=== PATIENT | male | born 1965 | race Caucasian/White ===

== ENCOUNTER 2020-04-18 10:30 | Inpatient (IN) | payer OTHER ==
[~2020-04-18] VITALS: Ht 172.7 cm; Wt 95.7 kg
[2020-04-18 10:35] VITALS: BP 146/89
[2020-04-18] MEDS ORDERED: BUPROPION HCL150 MG PO (10:43)
[2020-04-18] MEDS ORDERED: LIPITOR80 MG PO (10:43)
[2020-04-18] MEDS ORDERED: LOTENSIN40 MG PO (10:43)
[2020-04-18] MEDS ORDERED: LODINE400 M1 PO (10:44)
[2020-04-18] MEDS ORDERED: CLOBETASOL PROP15 GM TOP (10:44)
[2020-04-18] MEDS ORDERED: FLOVENT DISKU100 MCG INH (10:44)
[2020-04-18] MEDS ORDERED: DULOXETINE HCL30 MG PO (10:44)
[2020-04-18] MEDS ORDERED: ZETIA10 MG PO (10:44)
[2020-04-18] MEDS ORDERED: METFORMIN HCL500 M3 PO (10:45)
[2020-04-18] MEDS ORDERED: VIAGRA50 MG PO (10:45)
[2020-04-18] MEDS ORDERED: OMEPRAZOLE40 MG PO (10:45)
[2020-04-18] MEDS ORDERED: ZOLOFT 50 MG TA50 M1 PO (10:45)
[2020-04-18] MEDS ORDERED: VIAGRA100 MG PO (10:45)
[2020-04-18] MEDS ORDERED: VENTOLIN HFA 1818 GM INH (10:46)
[2020-04-18 10:52] LABS: ABSOLUTE BASOPHILS 0.3 thou/uL (0.0-0.2); ABSOLUTE EOSINOPHILS 0.1 thou/uL (0.0-0.7); ABSOLUTE LYMPHOCYTES 3.1 thou/uL (0.8-5.3); ABSOLUTE MONOCYTES 1.4 thou/uL (0.0-1.2); ABSOLUTE NEUTROPHILS 7.5 thou/uL (1.6-8.1); BASOPHILS 2.6 %; EOSINOPHILS 1.2 %; HEMATOCRIT 53.3 % (42.0-52.0); HEMOGLOBIN 18.4 gm/dL (14.0-18.0); LYMPHOCYTES 24.9 %; MCHC 34.5 g/dL (28.0-37.0); MONOCYTES 11.2 %; NUCLEATED RBCS 0 /100WBC; PLATELET COUNT* 384 thou/uL (150-400); POLYS 60.1 %; RBC 6.13 mil/uL (4.50-6.00); RDW-CV 13.4 % (10.5-14.5); WBC 12.5 thou/uL (4.0-11.0)
[2020-04-18 11:18] LABS: ALBUMIN 3.4 g/dL (3.4-5.0); CALCIUM 9.6 mg/dL (8.5-10.1); POTASSIUM 4.6 mmol/L (3.5-5.1); TOTAL BILIRUBIN 0.8 mg/dL (<0.1-1.0); TOTAL PROTEIN 7.4 g/dL (6.4-8.2)
[2020-04-18 11:44] LABS: CREATININE 0.9 mg/dL (0.6-1.3); SGOT 31.2 U/L (15-37)
[2020-04-18 11:45] LABS: SGPT 32.4 U/L (30-65)
[2020-04-18 11:47] LABS: GLUCOSE 573.6 mg/dL (70-99)
[2020-04-18 12:29] VITALS: BP 117/78
[2020-04-18 13:00] VITALS: BP 142/52
--- NOTE | 2020-04-18 15:01 | EKG ---
[place] [address] ELECTROCARDIOGRAM REPORT Name: JOSH ANDRADE Room: [address] ADM IN ..#: [id number] Admission: 04/18/20 Attend Phys: Baljit Cohn, Discharge: Date of : 65 Date of Service: 04/18/20 1036 Report #: [id number] THIS REPORT FOR: //name// [facility] ED Test Date: 2020-04-18 Test Time: 10:36:41 Pat Name: JOSH ANDRADE Department: Room: [facility] Gender: M Imagery Intelligence: LEONIDAS : 1965 Requested By: Ashwin Mustafa Order Number: [id number] MD: Fausto Garcia Measurements Intervals [place] Rate: 155 P: [place]: QRS: 67 QRSD: 97 T: 260 QT: 279 QTc: 448 Interpretive Statements Atrial fibrillation Borderline repolarization abnormality No previous ECG available for comparison Electronically Signed On 04-18-2020 15:01:23 AIR BRUSH ARTIST by Fausto Garcia [email or web address] <ELECTRONICALLY SIGNED> By: Fausto Garcia MD, [facility] 04/18/20 1501 1036 1036 Fausto Garcia MD, [facility] /EPI
[2020-04-19 01:44] VITALS: BP 100/52
[2020-04-19 02:08] LABS: GLYCOHEMOGLOBIN (HGB A1C) 11.7 % (4.8-5.6)
[2020-04-19 05:51] LABS: MCV 85.6 fL (80.0-100.0); PLATELET COUNT* 336 thou/uL (150-400)
[2020-04-19 05:52] VITALS: BP 127/84
[2020-04-19 05:56] LABS: ABSOLUTE BASOPHILS 0.1 thou/uL (0.0-0.2); ABSOLUTE EOSINOPHILS 0.3 thou/uL (0.0-0.7); ABSOLUTE LYMPHOCYTES 4.1 thou/uL (0.8-5.3); ABSOLUTE MONOCYTES 1.1 thou/uL (0.0-1.2); ABSOLUTE NEUTROPHILS 6.9 thou/uL (1.6-8.1); BASOPHILS 0.7 %; EOSINOPHILS 2.5 %; HEMATOCRIT 47.2 % (42.0-52.0); LYMPHOCYTES 32.9 %; MCH 29.4 pg (26.0-34.0); MCHC 34.4 g/dL (28.0-37.0); MONOCYTES 8.8 %; NUCLEATED RBCS 0 /100WBC; POLYS 55.1 %; RBC 5.51 mil/uL (4.50-6.00); RDW-CV 13.6 % (10.5-14.5); WBC 12.5 thou/uL (4.0-11.0)
[2020-04-19 05:59] LABS: HEMOGLOBIN 16.2 gm/dL (14.0-18.0)
[2020-04-19 06:10] LABS: CALCIUM 8.2 mg/dL (8.5-10.1); CREATININE 0.7 mg/dL (0.6-1.3); POTASSIUM 3.6 mmol/L (3.5-5.1)
[2020-04-19 08:00] VITALS: BP 135/87
--- NOTE | 2020-04-19 08:32 | CON ---
[address] [address] CONSULTATION Name: CHONG ANDRADE Room: [address] IN M.Larry.#: [id number] Admission: 04/18/20 Attend Phys: Baljit Cohn MD Discharge: Date of : 65 Report #: [id number] THIS REPORT FOR: cc: Chong Silva MD, Gregory MD ~ Fausto Garcia MD [facility] DATE OF SERVICE: 04/18/2020 CARDIOLOGY CONSULTATION HISTORY OF PRESENT ILLNESS: The patient is a 54-year-old white male who I was asked to see in the hospital today after he complained of shortness of breath. The patient notes in the past he was told that he had an abnormal heart valve. However, he has never seen a skiagrapher before. He was never placed on medications. He stays very active. He did well until about a month ago. His son who lives with him tested positive for COVID-19. The patient then noticed lack of energy, fever. He was coughing. He felt short of breath, lightheadedness. Apparently, he never tested for COVID-19. However, he self-quarantined. He did lose sense of smell and taste. His symptoms improved to the fact that he tried to go back to work, but again felt somewhat weak, short of breath, but no more fever. He does cough. He was sent home from work 3 days ago. Today, he went to see his primary care physician. He was noted to be in atrial fibrillation. He was sent to the Emergency Room and admitted for further evaluation and treatment. He does have occasional chest tightness, although it is nonexertional. There is no radiation of the pain. He has a chronic cough. He denied any palpitations, lower extremity edema. PAST MEDICAL HISTORY: He has had hernia repair, tonsillectomy, hypertension, diabetes, hyperlipidemia. MEDICATIONS: Consist of benazepril, metformin, Lipitor. ALLERGIES: He has no known drug allergies. FAMILY HISTORY: Negative for heart disease. SOCIAL HISTORY: He is . He and his live nearby. 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 Smokes half pack of cigarettes a day, drinks alcohol occasionally. One cup of coffee a day. REVIEW OF SYSTEMS: No history of stroke. He does use an inhaler. He wears glasses. No liver disease, no kidney disease, no cancer. No psychiatric illness. He does [place] [address] CONSULTATION Name: CHONG ANDRADE Room: [address]#: [id number] Admission: 04/18/20 Attend Phys: Baljit Cohn MD Discharge: Date of : 65 Report #: [id number] PHYSICAL EXAMINATION: GENERAL: Revealed a middle-aged male, appeared in no acute distress. VITAL SIGNS: Blood pressure was 120/80, pulse is 130. He is afebrile. HEENT: He was anicteric. Conjunctivae pink. Mucous members moist. NECK: Veins nondistended. Neck was supple. CHEST: Clear to auscultation. CARDIOVASCULAR: Irregular, tachycardia. No murmurs. ABDOMEN: Soft. EXTREMITIES: Had no edema. Posterior tibial pulse 2+ bilaterally. SKIN: Cool and dry. NEUROLOGIC: Nonfocal. PSYCHIATRIC: Mood was appropriate. RADIOLOGICAL DATA: His ECG on admission showed atrial fibrillation with rapid ventricular response rate, nonspecific T-wave changes. The patient actually had a coronary artery calcium score in September of 2018. His total score was 159 consistent with mild coronary artery calcification. The patient had CT of the aorta in 08/2018 that showed plaque in the iliac arteries SFA. The anterior tibial arteries appeared occluded bilaterally. Diverticulosis was noted. COVID test 04/11 was negative. The patient had lipids done in 2018; cholesterol 198, HDL 36, triglyceride 225, LDL 124. The patient had an x-ray in the Emergency Room today that showed no acute abnormality. LABORATORY WORK: Sodium 127, creatinine 0.9, glucose 537. His liver function studies were normal. Troponin 0.06. BNP 324. TSH 2.4. White blood cell count 5.5, hemoglobin 18.4. COVID antigen stat test was negative. IMPRESSION AND RECOMMENDATIONS: 1. Atrial fibrillation. Onset unclear. Recommend anticoagulation. Agree with diltiazem to slow the ventricular response rate. If he fails to convert, I would recommend a KERMIT and cardioversion. 2. Hypertension. The patient has been on an RUCHI inhibitor. 3. Diabetes. 4. Hyperlipidemia. The patient is on Lipitor. Also noted to have high triglycerides. 5. Tobacco abuse. Recommended, he attempts to stop smoking. 6. Chronic bronchitis. <ELECTRONICALLY SIGNED> By: Fausto Garcia MD, FACC 04/19/20 0832 1328 1434Drichardson Garcia MD, FACC /nt
[2020-04-19 12:00] VITALS: BP 126/82
--- NOTE | 2020-04-19 12:08 | 2DMMODE ---
[place] [address] 2 D/M-MODE ECHOCARDIOGRAM Name: CHONG ANDRADE Room: [address] IN Maurizio#: [id number] Admission: 04/18/20 Attend Phys: Baljit Cohn, Discharge: Date of : 65 Date of Service: 04/19/20 1208 Report #: [id number] THIS REPORT FOR: cc: Chong Silva MD, Gregory MD Blick,Fausto Deal MD [facility] ~ APPROVED REPORT Study performed: 04/19/2020 08:52:51 EXAM: Comprehensive 2D, Doppler, and color-flow Echocardiogram Patient Location: In-Patient Room #: [facility] Status: routine BSA: 2.09 HR: 75 bpm BP: 127/84 mmHg Rhythm: NSR Other Information Study Quality: Good Indications Atrial Fibrillation 2D Dimensions IVSd: 11.88 (7-11mm) LVOT Diam: 20.32 (18-24mm) LVDd: 50.98 mm PWd: 10.45 (7-11mm) Ascending Ao: 33.71 (22-36mm) LVDs: 38.95 (25-40mm) Aortic Root: 29.89 mm Volumes Left Atrial Volume (Systole) LA ESV Index: 23.50 mL/m2 Aortic Valve AoV Peak Vito.: 1.42 m/s AO Peak Gr.: 8.04 mmHg LVOT Max P.34 mmHg AO Mean Gr.: 4.71 mmHg LVOT Mean P.49 mmHg LVOT Max V: 0.91 m/s AO V2 VTI: 23.29 cm LVOT Mean V: 0.56 m/s LEILANI (VTI): 2.24 cm2 LVOT V1 VTI: 16.08 [place] [address] 2 D/M-MODE ECHOCARDIOGRAM Name: CHONG ANDRADE Room: [address]#: [id number] Admission: 04/18/20 Attend Phys: Baljit Cohn, Discharge: Date of : 65 Date of Service: 04/19/20 1208 Report #: [id number] Mitral Valve E/A Ratio: 0.98 MV Decel. Time: 159.54 ms MV E Max Vito.: 0.81 m/s MV PHT: 46.27 ms MVA (PHT): 4.76 cm2 TDI E/Lateral E': 6.75 E/Medial E': 9.00 Medial E' Vito.: 0.09 m/s Lateral E' Vito.: 0.12 m/s Pulmonary Valve PV Peak Vito.: 0.97 m/s PV Peak Gr.: 3.75 mmHg Tricuspid Valve RAP Estimate: 5.00 mmHg TR Peak Gr.: 33.00 mmHg RVSP: 38.00 mmHg PA Pressure: 38.00 mmHg Left Ventricle Left ventricle is mildly dilated. There is global hypokinesis of the left ventricle. There is normal left ventricular wall thickness. Left ventricular systolic function is mildly decreased. LVEF is 40-45%. Right Ventricle The right ventricle is normal size. The right ventricular systolic function is normal. Atria The left atrium size is normal. The right atrium size is normal. Aortic Valve Mild aortic valve sclerosis. No aortic regurgitation is present. There is no aortic valvular stenosis. Mitral Valve The mitral valve is normal in structure. Trace mitral regurgitation. No evidence of mitral valve stenosis. Tricuspid Valve The tricuspid valve is normal in structure. Trace tricuspid regurgitation. estimated pa pressure 40 [place] [address] 2 D/M-MODE ECHOCARDIOGRAM Name: RAYMONDCHONG WESTBROOK Lorene Room: [address] IN [facility]#: [id number] Admission: 04/18/20 Attend Phys: Baljit Cohn, Discharge: Date of : 65 Date of Service: 04/19/20 1208 Report #: [id number] Pulmonic Valve Pulmonic valve is not well visualized. There is no pulmonic valvular regurgitation. Great Vessels The aortic root is normal in size. IVC is normal in size and collapses >50% with inspiration. Pericardium There is no pericardial effusion. <Conclusion> LVEF is 40-45%. Mild aortic valve sclerosis. Trace mitral regurgitation. Trace tricuspid regurgitation. estimated pa pressure 40 mm Hg <ELECTRONICALLY SIGNED> By: Fausto Garcia MD, FACC 04/19/20 1208 07 1208 Fausto Garcia MD, FACC /INF
--- NOTE | 2020-04-19 14:00 | EKG ---
[place] [address] ELECTROCARDIOGRAM REPORT Name: JOSH ANDRADE Room: [address] ADM IN .R.#: [id number] Admission: 04/18/20 Attend Phys: Baljit Cohn, Discharge: Date of : 65 Date of Service: 04/18/20 1554 Report #: [id number] THIS REPORT FOR: //name// [facility] Test Date: 2020-04-18 Test Time: 15:54:43 Pat Name: JOSH ANDRADE Department: Room: [address] Gender: M Police Guard: AT : 1965 Requested By: Baljit Cohn Order Number: [id number] Zulma MD: Fausto Garcia Measurements Intervals [place] Rate: 79 P: 79 TX: 136 QRS: 62 QRSD: 92 T: 91 QT: 362 QTc: 416 Interpretive Statements Sinus rhythm Borderline T wave abnormalities Compared to ECG 04/18/2020 10:36:41 Atrial fibrillation no longer present Electronically Signed On 04-19-2020 14:00:30 WASHING MACHINE OPERATOR by Fausto Garcia [email or web address] <ELECTRONICALLY SIGNED> By: Fausto Garcia MD, FACC 04/19/20 1400 1554 1554 Fausto Garcia MD, [facility] /EPI
--- NOTE | 2020-04-19 14:09 | EKG ---
[place] [address] ELECTROCARDIOGRAM REPORT Name: JOSH ANDRADE Room: [address] ADM IN M.R.#: [id number] Admission: 04/18/20 Attend Phys: Baljit Cohn, Discharge: Date of : 65 Date of Service: 04/19/20 0945 Report #: [id number] THIS REPORT FOR: //name// [facility] Test Date: 2020-04-19 Test Time: 09:45:37 Pat Name: JOSH ANDRADE Department: Room: [address] Gender: M Treatment Coordinator: SUSANNE : 1965 Requested By: Fausto Garcia Order Number: [id number] Reading MD: José Miguel Bates Measurements Intervals [place] Rate: 76 P: 76 SC: 132 QRS: 67 QRSD: 99 T: 236 QT: 372 QTc: 419 Interpretive Statements Sinus rhythm Nonspecific T abnormalities, diffuse leads Compared to ECG 04/18/2020 10:36:41 T-wave abnormality now present Atrial fibrillation no longer present Electronically Signed On 04-19-2020 14:09:24 FLORICULTURIST by José Miguel Bates [email or web address] <ELECTRONICALLY SIGNED> By: José Miguel Bates MD, FACC 04/19/20 1409 0945 0945 José Miguel Bates MD, [facility] /EPI
--- NOTE | 2020-04-19 14:10 | EKG ---
[place] [address] ELECTROCARDIOGRAM REPORT Name: JOSH ANDRADE Room: [address] ADM IN M.R.#: [id number] Admission: 04/18/20 Attend Phys: Baljit Cohn, Discharge: Date of : 65 Date of Service: 04/19/20 1135 Report #: [id number] THIS REPORT FOR: //name// [facility] Test Date: 2020-04-19 Test Time: 11:35:11 Pat Name: JOSH ANDRADE Department: Room: [address] Gender: M Machine Featheredger And Reducer: DEMETRIUS : 1965 Requested By: Baljit Cohn Order Number: [id number] Reading MD: José Miguel Bates Measurements Intervals [place] Rate: 70 P: 80 RI: 137 QRS: 65 QRSD: 91 T: 90 QT: 374 QTc: 404 Interpretive Statements Sinus rhythm Left atrial enlargement, possible Nonspecific T abnrm, anterolateral leads Compared to ECG 04/19/2020 09:45:37 Atrial abnormality now present T-wave abnormality no longer present Electronically Signed On 04-19-2020 14:10:30 PUBLIC ADDRESS SYSTEM INSTALLER by José Miguel Bates [email or web address] <ELECTRONICALLY SIGNED> By: José Miguel Bates MD, FACC 04/19/20 1410 1135 1135 José Miguel Bates MD, FACC /EPI
[2020-04-19 17:09] VITALS: BP 132/86
[2020-04-19 23:28] VITALS: BP 132/86
[2020-04-20 08:00] VITALS: BP 129/88
--- NOTE | 2020-04-20 10:07 | EKG ---
[place] [address] ELECTROCARDIOGRAM REPORT Name: JOSH ANDRADE Room: [address] ADM IN M.R.#: [id number] Admission: 04/18/20 Attend Phys: Baljit Cohn, Discharge: Date of : 65 Date of Service: 04/20/20 0828 Report #: [id number] THIS REPORT FOR: //name// [facility] Test Date: 2020-04-20 Test Time: 08:28:31 Pat Name: JOSH ANDRADE Department: Room: [address] Gender: M Nurse Clinical: SUSANNE : 1965 Requested By: Fausto Garcia Order Number: [id number] Reading MD: Fausto Garcia Measurements Intervals [place] Rate: 77 P: 75 [place]: 131 QRS: 63 QRSD: 96 T: 21 QT: 379 QTc: 429 Interpretive Statements Sinus rhythm Probable left atrial enlargement Borderline repolarization abnormality Baseline wander in lead(s) V2 Compared to ECG 04/19/2020 11:35:11 No significant changes Electronically Signed On 04-20-2020 10:07:42 INTERNATIONAL TRADE TEACHER by Fausto Garcia [email or web address] <ELECTRONICALLY SIGNED> By: Fausto Garcia MD, [facility] 04/20/20 1007 0828 0828 Fausto Garcia MD, [facility] /EPI
[2020-04-20] MEDS ORDERED: HUMULIN N100 UNIT/1 SUBQ (11:07)
[2020-04-20] MEDS ORDERED: HUMULIN R100 UNIT/1 SUBQ (11:07)
[2020-04-20] MEDS ORDERED: ONE TOUCH ULTR1 EACH SUBQ (11:12)
[2020-04-20] MEDS ORDERED: ONE TOUCH LANC1 EACH SUBQ (11:12)
[2020-04-20] MEDS ORDERED: ONE TOUCH ULTR1 EAC3 SUBQ (11:12)
[2020-04-20 12:34] VITALS: BP 132/86
[2020-04-20] MEDS ORDERED: XARELTO20 MG PO (13:23)
[2020-04-20] MEDS ORDERED: SORINE 80 MG TA80 M1 PO (13:23)
[2020-04-20 13:59] VITALS: BP 132/86
== END 2020-04-20 14:30 | disposition home or self-care (01) | DRG 308 ==
LOC: M.ERS 10:30 → M.TBA-ER 11:36 → M.2W 11:36
PROVIDERS: Emergency Medicine Emergency Medical Services; ADMIT Internal Medicine; ATTEND Internal Medicine
DX: I48.91 Unspecified atrial fibrillation (principal); E11.00 Type 2 diabetes mellitus with hyperosmolarity without nonketotic hyperglycemic-hyperosmolar coma (NKHHC); E87.1 Hypo-osmolality and hyponatremia; E11.51 Type 2 diabetes mellitus with diabetic peripheral angiopathy without gangrene; E78.5 Hyperlipidemia, unspecified; F17.210 Nicotine dependence, cigarettes, uncomplicated; E78.00 Pure hypercholesterolemia, unspecified; I25.10 Atherosclerotic heart disease of native coronary artery without angina pectoris; J44.9 Chronic obstructive pulmonary disease, unspecified; I10 Essential (primary) hypertension; Z20.822 Contact with and (suspected) exposure to COVID-19; Z86.16 Personal history of COVID-19; Z79.84 Long term (current) use of oral hypoglycemic drugs; Z79.899 Other long term (current) drug therapy

== ENCOUNTER → 2020-05-06 | Outpatient (CLI) | payer OTHER ==
[~2020-05-06] MED LIST: BUPROPION HCL150 MG PO; CLOBETASOL PROP15 GM TOP; DULOXETINE HCL30 MG PO; FLOVENT DISKU100 MCG INH; HUMULIN N100 UNIT/1 SUBQ; HUMULIN R100 UNIT/1 SUBQ; LIPITOR80 MG PO; LODINE400 M1 PO; LOTENSIN40 MG PO; METFORMIN HCL500 M3 PO; OMEPRAZOLE40 MG PO; ONE TOUCH LANC1 EACH SUBQ; ONE TOUCH ULTR1 EAC3 SUBQ; ONE TOUCH ULTR1 EACH SUBQ; SORINE 80 MG TA80 M1 PO; VENTOLIN HFA 1818 GM INH; VIAGRA100 MG PO; VIAGRA50 MG PO; XARELTO20 MG PO; ZETIA10 MG PO; ZOLOFT 50 MG TA50 M1 PO
--- NOTE | 2020-05-06 18:24 | CARDNUC ---
[place] [address] CARDIAC NUCLEAR IMAGING REPORT Name: CHONG ANDRADE Room: [facility]#: [id number] Admission: 05/06/20 Attend Phys: José Miguel Bates, Discharge: Date of : 65 Date of Service: 05/06/20 1824 Report #: [id number] THIS REPORT FOR: cc: Chong Silva MD, Gregory MD Liston, Michael J. MD [facility] ~ APPROVED REPORT Study performed: 05/06/2020 13:59:21 Exam: Nuclear Stress Test Indication: Chest pain Patient Location: Out-Patient Stress Tech: Alicia Keen Stress Nurse: Jody Sims RN Ht: 5 ft 8 in Wt: 209 lbs BSA: 2.08 m2 BMI: 31.77 Medical History Medical History: Diabetes, HTN Medications: diltiazem, atorvastatin, benazepril, xarelto, sotalol Allergies: No known drug allergies Cardiac Risk Factors: Age, Current Smoker, DM, HTN, Past Smoker Exercise History: Indeterminate Stress Test Details Stress Test: Pharmacologic stress testing performed using 0.4 mg of regadenoson per 5 mL given IV over 10 seconds. Reason for pharmacologic stress test: physical limitation. HR Resting HR: 67 bpm Max Heart Rate (APMHR): 166 bpm Max HR Achieved: 86 bpm Target HR (85% APMHR): 141 bpm % of APMHR: 51 Recovery HR: 83 bpm BP Resting BP: 143/95 mmHg Max BP: 150/89 [place] [address] CARDIAC NUCLEAR IMAGING REPORT Name: CHONG ANDRADE Room: [facility]#: [id number] Admission: 05/06/20 Attend Phys: José Miguel Bates, Discharge: Date of : 65 Date of Service: 05/06/20 1824 Report #: [id number] Resting ECG: Sinus Rhythm, nonspecific ST-T abnormalities Stress ECG: Sinus Rhythm, nonspecific ST-T abnormalities ST Change: None Arrhythmia: None Recovery ECG: Sinus Rhythm, nonspecific ST-T abnormalities Recovery ST Change: None Recovery Arrhythmia: None Clinical Reason for Termination: Completed protocol The patient tolerated Lexiscan infusion without significant cardiac symptoms. Nurse Comments pt has neuropathy and wounds on legs. not safe to walk on treadmill Stress ECG Conclusion The baseline twelve-lead EKG shows sinus rhythm with some nonspecific ST segment and T wave abnormality in the inferior leads. EKGs obtained during and post Lexiscan infusion showed sinus rhythm with no significant ST segment changes when compared to baseline. There were no stress-induced arrhythmias. NM EXAM: Myocardial Perfusion REST/STRESS Resting Data Rest SPECT myocardial perfusion imaging was performed in supine position 30 minutes following the intravenous injection of 11.2 mCi of Tc-99m Sestamibi. Time of rest injection: 12:50 The images were gated to evaluate regional wall motion and calculate left ventricular ejection fraction. Administration Route: IV Administration Site: Right AC Pharmacologic Stress Pharmacologic stress test was performed by injecting Regadenoson 0.4 mg IV push followed by the intravenous injection of 32.0 mCi of Tc-99m Sestamibi. Time of stress injection: 14:15 Administration Route: IV Administration Site: Right AC Heart Rate at time of stress injection: [place] [address] CARDIAC NUCLEAR IMAGING REPORT Name: CHONG ANRDADE Room: [facility]#: [id number] Admission: 05/06/20 Attend Phys: José Miguel Bates, Discharge: Date of : 65 Date of Service: 05/06/20 1824 Report #: [id number] Gated Stress SPECT was performed 45 minutes after stress injection. The images were gated to evaluate regional wall motion and calculate left ventricular ejection fraction. Prone imaging was performed. Study Quality Study: Good Artifact: Mild Diaphragmatic artifact Study Data At rest, the left ventricular ejection fraction was 35%.. Post stress, the left ventricular ejection was 39%.. TID = 1.09. Perfusion Perfusion images show mild to moderate photopenia of the inferior wall on resting and stress images obtained in the supine position that resolves with post-rest prone imaging suggesting diaphragmatic attenuation artifact. There is focal photopenia of the apex consistent with apical thinning artifact. Wall Motion There is moderate global hypokinesis without focal wall motion abnormality. Nuclear Conclusion ECG Findings: negative for ischemia Clinical Findings: negative for ischemia Nuclear Findings: negative for ischemia Exercise Capacity: not assessed Left Ventricular Function: abnormal Perfusion images show no reversible defect to suggest ischemia. Global LV systolic function appears moderately decreased. Findings consistent with a nonischemic cardiomyopathy. This is a moderate to high risk study based on LV systolic dysfunction in the setting of nonischemic cardiomyopathy. Sign Dr. Bates thank you <Conclusion> The baseline twelve-lead EKG shows sinus rhythm with some nonspecific ST segment and T wave abnormality in the inferior leads. EKGs obtained during and post Lexiscan infusion [place] [address] CARDIAC NUCLEAR IMAGING REPORT Name: CHONG ANDRADE Room: [facility]#: [id number] Admission: 05/06/20 Attend Phys: José Miguel Bates, Discharge: Date of : 65 Date of Service: 05/06/201823 Report #: [id number] segment changes when compared to baseline. There were no stress-induced arrhythmias. <ELECTRONICALLY SIGNED> By: José Miguel Bates MD, [facility] 05/06/20 1824 23 1824 José Miguel Bates MD, FACC /INF
== END ==
LOC: M.NUC 04-28 15:45
PROVIDERS: ATTEND Internal Medicine Cardiovascular Disease
DX: I42.9 Cardiomyopathy, unspecified (principal)

== ENCOUNTER → 2020-06-17 | Outpatient (CLI) | payer OTHER ==
[2020-06-17] VITALS (10 sets, daily range): BP systolic 112–142; BP diastolic 68–81
[~2020-06-17] VITALS: Ht 172.7 cm; Wt 97.5 kg
[~2020-06-17] MED LIST changes: +NOVOLIN N100 UNIT/1 SUBQ
[2020-06-17 08:37] LABS: HEMATOCRIT 44.2 % (42.0-52.0); HEMOGLOBIN 15.3 gm/dL (14.0-18.0); MCH 29.8 pg (26.0-34.0); MCHC 34.5 g/dL (28.0-37.0); MCV 86.3 fL (80.0-100.0); MPV 6.4 fl. (7.2-11.1); RBC 5.13 mil/uL (4.50-6.00); RDW-CV 13.6 % (10.5-14.5); WBC 8.5 thou/uL (4.0-11.0)
[2020-06-17 08:45] LABS: ANION GAP 14 mmol/L (7-16); BUN 16 mg/dL (7-18); CALCIUM 8.1 mg/dL (8.5-10.1); CHLORIDE 105 mmol/L (98-107); CO2 22 mmol/L (21-32); CREATININE 0.8 mg/dL (0.6-1.3); SODIUM 141 mmol/L (136-145)
[2020-06-17 08:47] LABS: GLUCOSE 188 mg/dL (70-99); POTASSIUM 4.4 mmol/L (3.5-5.1)
[2020-06-17 08:49] LABS: APTT 25.2 Seconds (25.0-31.3); INR 0.9; PROTIME 9.7 Seconds (9.20-11.50)
[2020-06-17 08:58] LABS: ALBUMIN 3.2 g/dL (3.4-5.0); ALKALINE PHOSPHATASE 70 U/L (46-116); CHOLESTEROL 283 mg/dL (<200); HDL CHOLESTEROL 27 mg/dL (>40); TC:HDL 10.5 Ratio (Not establshd); TOTAL BILIRUBIN 0.3 mg/dL (<0.1-1.0); TOTAL PROTEIN 6.6 g/dL (6.4-8.2); TRIGLYCERIDE 1394 mg/dL (<150); VLDL 279 mg/dL (<40)
[2020-06-17 09:08] LABS: LDL CHOLESTEROL > 400 mg/dL (<100)
[2020-06-17 09:09] LABS: SERUM ASSESSMENT Moderate Lipemia
[2020-06-17 10:02] LABS: SGOT 26 U/L (15-37)
--- NOTE | 2020-06-17 10:20 | EKG ---
[place] [address] ELECTROCARDIOGRAM REPORT Name: JOSH ANDRADE Room: [facility]#: [id number] Admission: 06/17/20 Attend Phys: Fausto Garcia MD Discharge: Date of : 65 Date of Service: 06/17/20827 Report #: [id number] THIS REPORT FOR: //name// [facility] Test Date: 2020-06-17 Test Time: 08:28:26 Pat Name: JOSH ANDRADE Department: Room: Gender: M Supervisor Machine Workers: : 1965 Requested By: Fausto Garcia Order Number: [id number] Reading MD: Fausto Garcia Measurements Intervals [place] Rate: 83 P: 79 DE: 144 QRS: 65 QRSD: 92 T: 99 QT: 374 QTc: 440 Interpretive Statements Sinus rhythm Atrial premature complex Consider left atrial enlargement Borderline T wave abnormalities Compared to ECG 04/20/2020 08:28:31 Atrial premature complex(es) now present Electronically Signed On 06-17-2020 10:20:35 CDT by Fausto Garcia [email or web address] <ELECTRONICALLY SIGNED> By: Fausto Garcia MD, FAC 06/17/20 1020 0828 Fausto Garcia MD, [facility] /EPI
[2020-06-17 11:07] LABS: SGPT 42 U/L (30-65)
--- NOTE | 2020-06-18 11:15 | CARD ---
[address] [address] CARDIAC CATH REPORT Name: CHONG ANDRADE Room: [facility] Steven#: [id number] Admission: 06/17/20 Attend Phys: Fausto aGrcia MD, F Discharge: Date of : 65 Report #: [id number] THIS REPORT FOR: cc: Chong Silva MD, Gregory MD ~ Fausto Garcia MD [facility] APPROVED REPORT Study performed: 06/17/2020 08:50:58 Patient Details Patient Status: Out-Patient Room #: The patient is a 55 year-old male Event Personnel Robin Faustin RTR Monitor, Rae Medley RTR ScrubPranay Sujita RN RN, Fausto Garcia Quality Assurance Group Leader, Procedures Performed Left Heart Cath w/or w/o Coronaries [id number] [facility] Hemostasis with Hemoband Indication Atrial fibrillation, CardiomyopathyPositive stress test Risk Factors Hypercholesterolemia, Hypertension Admission/Lab Medications/Medications given during procedure Heparin Unfract., Fentanyl IV 25 mcg, Midazolam (Versed) IV 2 mg, Lidocaine Subcut 5 ml, Nitroglycerin IA 200 mcg, Verapamil IV 2.5 mg, Heparin IV 4800 units Procedure Narrative The patient was brought electively to the Cardiac Catheterization Laboratory and was prepped and draped in a sterile manner. The right wrist was infiltrated with 2% Lidocaine subcutaneous anesthesia. A Slender Glidesheath sheath was inserted into the right radial artery. Coronary angiography was performed using coronary diagnostic catheters. The right coronary system was accessed and visualized with a Diagnostic JR4 6Fr catheter. The left coronary system was accessed and visualized with a Diagnostic JL4 6Fr catheter. The left ventricle was accessed and visualized with a Diagnostic Pigtail 6Fr catheter. Left ventricular/Aortic Valve gradient [place] [address] CARDIAC CATH REPORT Name: CHONG ANDRADE Room: [facility]#: [id number] Admission: 06/17/20 Attend Phys: Fausto Garcia MD, F Discharge: Date of : 65 Report #: [id number] pullback. Closure device was deployed with a 6 Fr vascband. The patient tolerated the procedure well and there were no complications associated with the procedure. There was no hematoma. Intraoperative Conscious Sedation Sedation start time: 932 Case end Time: 09 Fentanyl 25 mcg Versed 2 mg Fluoro Time: 2.5 minutes Dose: DAP 30045 cGycm2 680.84 mGy Contrast Type and Amount: Omnipaque 100 ml Coronary Angiography The patient's coronary anatomy is co- dominant. Diagnostic Cath Left Main 0% stenosis LAD 30% mid stenosis Diagonal 1 large vessel with 60% proximal stenosis Circumflex 0% stenosis Right Coronary 30% mid stenosis R PDA 50% mid stenosis Ramus medium sized vessel with 40% proximal stenosis Left Ventriculography The left ventricular ejection fraction is estimated to be 50-55%. Left ventricular wall motion abnormalities are not present. There is no mitral insufficiency. Hemodynamics The aortic pressure is 142/78 mmHg with a mean of 104 mmHg. The left ventricular pressure is 139/10 mmHg with a mean of mmHg. The left ventricular end diastolic pressure is 15 mmHg. There was no gradient across the aortic valve upon pullback. Pullback from the left ventricle to the aorta revealed no gradient across the aortic valve. Conclusion 1. moderate CAD with a 60% stenosis of the diagonal branch of the LAD 2. 50% stenosis of the distal RCA 3. 40% stenosis of the ramus branch 4. LVEF 50-55% [place] [address] CARDIAC CATH REPORT Name: CHONG ANDRADE Room: [facility]#: [id number] Admission: 06/17/20 Attend Phys: Fausto Garcia MD, F Discharge: Date of : 65 Report #: [id number] Recommendations Aggressive Medical Therapy <ELECTRONICALLY SIGNED> By: Fausto Garcia MD, [facility] 06/18/20 1114 1114 1114Drichardson Garcia MD, FACC /INF
== END | disposition home or self-care (01) ==
LOC: M.CL 07:45
PROVIDERS: ATTEND Internal Medicine Cardiovascular Disease
DX: R94.39 Abnormal result of other cardiovascular function study (principal); I25.10 Atherosclerotic heart disease of native coronary artery without angina pectoris; I42.9 Cardiomyopathy, unspecified; I48.91 Unspecified atrial fibrillation; I10 Essential (primary) hypertension; E11.9 Type 2 diabetes mellitus without complications; E78.00 Pure hypercholesterolemia, unspecified; F17.210 Nicotine dependence, cigarettes, uncomplicated; Z98.890 Other specified postprocedural states; Z79.899 Other long term (current) drug therapy; Z20.822 Contact with and (suspected) exposure to COVID-19; Z79.01 Long term (current) use of anticoagulants

== ENCOUNTER 2021-02-07 09:30 | Inpatient (IN) | payer OTHER ==
[~2021-02-07] VITALS: Ht 175.3 cm; Wt 99.8 kg
[2021-02-07 09:34] VITALS: BP 114/78
[2021-02-07 09:56] LABS: ABSOLUTE BASOPHILS 0.1 thou/uL (0.0-0.2); ABSOLUTE EOSINOPHILS 0.1 thou/uL (0.0-0.7); ABSOLUTE LYMPHOCYTES 1.3 thou/uL (0.8-5.3); ABSOLUTE MONOCYTES 0.8 thou/uL (0.0-1.2); ABSOLUTE NEUTROPHILS 5.4 thou/uL (1.6-8.1); BASOPHILS 0.9 %; EOSINOPHILS 1.9 %; HEMATOCRIT 47.4 % (42.0-52.0); LYMPHOCYTES 17.2 %; MCH 29.5 pg (26.0-34.0); MCHC 33.7 g/dL (28.0-37.0); MCV 87.7 fL (80.0-100.0); MONOCYTES 10.5 %; MPV 6.5 fl. (7.2-11.1); NUCLEATED RBCS 0 /100WBC; PLATELET COUNT* 309 thou/uL (150-400); POLYS 69.5 %; RBC 5.41 mil/uL (4.50-6.00); RDW-CV 14.1 % (10.5-14.5); WBC 7.8 thou/uL (4.0-11.0)
[2021-02-07 10:03] LABS: CALCIUM 8.7 mg/dL (8.5-10.1); CREATININE 0.9 mg/dL (0.6-1.3); POTASSIUM 4.5 mmol/L (3.5-5.1)
--- NOTE | 2021-02-07 10:08 | EKG ---
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 : 1965 Requested By: Fredy Gatica Order Number: [id number] MD: Fausto Garcia Measurements Intervals [place] Rate: 82 P: 79 WI: 139 QRS: 65 QRSD: 97 T: 122 QT: 375 QTc: 438 Interpretive Statements Sinus rhythm Probable left atrial enlargement Probable septal infarct, old Nonspecific T abnormalities, lateral leads Compared to ECG 06/17/2020 08:28:26 Myocardial infarct finding now present Atrial premature complex(es) no longer present T-wave abnormality still present Electronically Signed On 02-07-2021 10:07:54 COMPLAINT CLERK by Fausto Garcia [email or web address] <ELECTRONICALLY SIGNED> By: Fausto Garcia MD, FACC 02/07/21 1007 7 7 Fausto Garcia MD, FACC /EPI
[2021-02-07 10:14] LABS: ALBUMIN 3.3 g/dL (3.4-5.0); MAGNESIUM 2.1 mg/dL (1.8-2.4); TOTAL BILIRUBIN 0.5 mg/dL (<0.1-1.0); TOTAL PROTEIN 6.6 g/dL (6.4-8.2)
[2021-02-07 12:50] LABS: CHOLESTEROL 189 mg/dL (<200); HDL CHOLESTEROL 42 mg/dL (>40); LDL CHOLESTEROL 127 mg/dL (<100); SERUM ASSESSMENT Clear; TC:HDL 4.5 Ratio (Not establshd); TRIGLYCERIDE 102 mg/dL (<150); VLDL 20 mg/dL (<40)
[2021-02-07 14:00] VITALS: BP 120/90
[2021-02-07 21:00] VITALS: BP 128/95
[2021-02-07 23:00] VITALS: BP 139/95
[2021-02-08] VITALS (31 sets, daily range): BP systolic 113–164; BP diastolic 70–115
[2021-02-08] LABS: PROTIME 10.7 Seconds (9.20-11.50)
[2021-02-08 06:28] LABS: ABSOLUTE LYMPHOCYTES 1.6 thou/uL (0.8-5.3); ABSOLUTE MONOCYTES 0.7 thou/uL (0.0-1.2); BASOPHILS 0.5 %; EOSINOPHILS 0.3 %; HEMATOCRIT 46.3 % (42.0-52.0); HEMOGLOBIN 15.4 gm/dL (14.0-18.0); LYMPHOCYTES 21.7 %; MCH 29.4 pg (26.0-34.0); MCHC 33.3 g/dL (28.0-37.0); MCV 88.4 fL (80.0-100.0); MONOCYTES 9.6 %; MPV 6.7 fl. (7.2-11.1); NUCLEATED RBCS 0 /100WBC; PLATELET COUNT* 349 thou/uL (150-400); POLYS 67.9 %; RBC 5.24 mil/uL (4.50-6.00); RDW-CV 13.8 % (10.5-14.5); WBC 7.3 thou/uL (4.0-11.0)
[2021-02-08 06:29] LABS: CALCIUM 8.9 mg/dL (8.5-10.1)
[2021-02-08 06:30] LABS: POTASSIUM 5.5 mmol/L (3.5-5.1)
--- NOTE | 2021-02-08 08:51 | EKG ---
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 : 1965 Requested By: Le Ritter Order Number: [id number] MD: Fausto Garcia Measurements Intervals [place] Rate: 75 P: 79 SC: 142 QRS: 68 QRSD: 95 T: 131 QT: 363 QTc: 406 Interpretive Statements Sinus rhythm Probable left atrial enlargement Borderline repolarization abnormality Compared to ECG 02/07/2021 23:24:33 no change Electronically Signed On 02-08-2021 8:51:12 WIRE COATER by Fausto Garcia [email or web address] <ELECTRONICALLY SIGNED> By: Fausto Garcia MD, FAC 02/08/21 0851 0034 0034 Fausto Garcia MD, [facility] /EPI
--- NOTE | 2021-02-08 16:41 | CARD ---
[address] [address] CARDIAC CATH REPORT Name: CHONG ANDRADE Room: [address] IN ..#: [id number] Admission: 02/07/21 Attend Phys: Baljit Cohn MD Discharge: Date of : 65 Report #: [id number] THIS REPORT FOR: cc: Chong Silva MD, Gregory MD Blick,Fausto Deal MD [facility] ~ APPROVED REPORT Study performed: 02/08/2021 12:39:21 Patient Details Patient Status: In-Patient Room #: ICU 6 The patient is a 55 year-old male Event Personnel Dr Garcia, Robin Faustin RTR, Luzma Pires RN, Ashley Hurley RTR Procedures Performed Left heart cath with LV gram Indication Non-STEMI , Arrhythmia, Chest pain Risk Factors Hypertension Procedure Narrative The patient was brought urgently to the Cardiac Catheterization Laboratory and was prepped and draped in a sterile manner. The right wrist was infiltrated with 2% Lidocaine subcutaneous anesthesia. IV conscious sedation was used throughout procedure with appropriate monitoring and was performed in the presence of a registered nurse who was an independent trained observer other than the physician performing the procedure. A 6 Fr Glidesheath Slender sheath was inserted into the right radial artery. Coronary angiography was performed using coronary diagnostic catheters. The right coronary system was accessed and visualized with a Diagnostic 6 Fr JR 4 catheter. The left coronary system was accessed and visualized with a Diagnostic 6 Fr JL 4 catheter. The left ventricle was accessed and visualized with a Diagnostic 6 Fr Straight Pigtail catheter. Left ventricular/Aortic Valve gradient assessed via catheter pullback. Left ventriculogram was performed in SYKES projection. The patient tolerated the procedure well [place] [address] CARDIAC CATH REPORT Name: CHONG ANDRADE Room: [address]#: [id number] Admission: 02/07/21 Attend Phys: Baljit Cohn MD Discharge: Date of : 65 Report #: [id number] associated with the procedure. There was no hematoma. Radial band was applied with 8ml of air Intraoperative Conscious Sedation Sedation start time: 1312 Case end Time: 1336 Fentanyl 0.0 mcg Versed 2.0 mg Fluoro Time: 2.8 minutes Dose: DAP 71738 cGycm2 960 mGy Contrast Type and Amount: Visipaque 70 ml Coronary Angiography The patient's coronary anatomy is co- dominant. Diagnostic Cath Left Main 30% distal stenosis LAD 0% stenosis Diagonal 1 large vessel that bifurcated, and one limb of the bifurcation had a 70% mid stenosis Circumflex 0% stenosis Right Coronary mid 30% stenosis. 70% distal stenosis just prior to the bifurcation. RPLV small vessel with 90% ostial stenosis Ramus large vessel with 40% proximal stenosis Left Ventriculography The left ventricular ejection fraction is estimated to be 15-20%. There is 1+ mitral insufficiency. Global hypokinesis of the left ventricle Hemodynamics The aortic pressure is 110/77 mmHg with a mean of 89 mmHg. The left ventricular pressure is 102/15 mmHg with a mean of 25 mmHg. The left ventricular end diastolic pressure is 25 mmHg. There was no gradient across the aortic valve upon pullback. Pullback from the left ventricle to the aorta revealed no gradient across the aortic valve. Conclusion 1. mild CAD with 70% stenosis of the diagonal branch of the LAD 2. 70% stenosis of the distal RCA 3. 90% ostial stenosis of a small posterolateral branch of the RCA. 4. LVEF 15-20% [place] [address] CARDIAC CATH REPORT Name: CHONG ANDRADE L[place] Room: [address] IN [facility].#: [id number] Admission: 02/07/21 Attend Phys: Baljit Cohn MD Discharge: Date of : 65 Report #: [id number] Recommendations Aggressive Medical Therapy <ELECTRONICALLY SIGNED> By: Fausto Garcia MD, [facility] 02/08/211640 40 1641Drichardson Garcia MD, FACC /INF
[2021-02-09] VITALS (14 sets, daily range): BP systolic 113–169; BP diastolic 63–100
[2021-02-09 04:15] LABS: CALCIUM 8.6 mg/dL (8.5-10.1); CREATININE 1.1 mg/dL (0.6-1.3)
[2021-02-09 04:22] LABS: POTASSIUM 4.3 mmol/L (3.5-5.1)
--- NOTE | 2021-02-09 11:53 | 2DMMODE ---
[place] [address] 2 D/M-MODE ECHOCARDIOGRAM Name: CHONG ANDRADE Room: [address] IN .Larry.#: [id number] Admission: 02/07/21 Attend Phys: Baljit Cohn, Discharge: Date of : 65 Date of Service: 02/09/21 1153 Report #: [id number] THIS REPORT FOR: cc: Chong Silva MD, Gregory MD Liston, Michael J. MD [facility] ~ APPROVED REPORT Study performed: 02/09/2021 10:08:54 EXAM: Comprehensive 2D, Doppler, and color-flow Echocardiogram Patient Location: In-Patient Room #: 006 Status: routine BSA: 2.15 HR: 81 bpm BP: 156/99 mmHg Rhythm: NSR Other Information Study Quality: Good Indications Cardiomyopathy 2D Dimensions IVSd: 11.04 (7-11mm) LVOT Diam: 20.47 (18-24mm) LVDd: 55.51 mm PWd: 11.86 (7-11mm) LVDs: 40.78 (25-40mm) Aortic Root: 31.96 mm Volumes Left Atrial Volume (Systole) LA ESV Index: 29.10 mL/m2 Aortic Valve AoV Peak Vito.: 1.44 m/s AO Peak Gr.: 8.26 mmHg LVOT Max P.56 mmHg AO Mean Gr.: 4.57 mmHg LVOT Mean P.08 mmHg LVOT Max V: 0.80 m/s AO V2 VTI: 24.05 cm LVOT Mean V: 0.47 m/s LEILANI (VTI): 2.02 cm2 LVOT V1 VTI: 14.73 [place] [address] 2 D/M-MODE ECHOCARDIOGRAM Name: CHONG ANDRADE Room: [address] IN .R.#: [id number] Admission: 02/07/21 Attend Phys: Baljit Cohn, Discharge: Date of : 65 Date of Service: 02/09/21 1153 Report #: [id number] Mitral Valve E/A Ratio: 2.05 MV Decel. Time: 138.82 ms MV E Max Vito.: 0.97 m/s MV PHT: 40.26 ms MVA (PHT): 5.46 cm2 TDI E/Lateral E': 7.46 E/Medial E': 12.13 Medial E' Vito.: 0.08 m/s Lateral E' Vito.: 0.13 m/s Pulmonary Valve PV Peak Vito.: 0.94 m/s PV Peak Gr.: 3.51 mmHg Tricuspid Valve RAP Estimate: 5.00 mmHg TR Peak Gr.: 42.49 mmHg RVSP: 47.00 mmHg PA Pressure: 47.00 mmHg Left Ventricle The left ventricle is normal size. There is normal LV segmental wall motion. Mild concentric left ventricular hypertrophy. Left ventricular systolic function is severely decreased. LVEF is 25-30%. Transmitral Doppler flow pattern suggests pseudonormalization. Right Ventricle The right ventricle is normal size. The right ventricular systolic function is normal. Atria The left atrium size is normal. The right atrium size is normal. Aortic Valve Mild aortic valve sclerosis. No aortic regurgitation is present. There is no aortic valvular stenosis. Mitral Valve The mitral valve is normal in structure. Trace mitral regurgitation. No evidence of mitral valve stenosis. Tricuspid Valve The tricuspid valve is normal in structure. Trace tricuspid regurgitation. Moderate pulmonary hypertension. The RVSP is 50-[place] [address] 2 D/M-MODE ECHOCARDIOGRAM Name: CHONG ANDRADE Room: [address]#: [id number] Admission: 02/07/21 Attend Phys: Baljit Cohn, Discharge: Date of : 65 Date of Service: 02/09/21 1153 Report #: [id number] Pulmonic Valve The pulmonary valve is normal in structure. There is no pulmonic valvular regurgitation. Great Vessels The aortic root is normal in size. IVC is normal in size and collapses >50% with inspiration. Pericardium There is no pericardial effusion. <Conclusion> The left ventricle is normal size. Mild concentric left ventricular hypertrophy. The left ventricle is normal size. Mild concentric left ventricular hypertrophy. Left ventricular systolic function is severely decreased. LVEF is 25-30%. Transmitral Doppler flow pattern suggests pseudonormalization. Mild aortic valve sclerosis. There is no aortic valvular stenosis. Trace mitral regurgitation. Trace tricuspid regurgitation. Moderate pulmonary hypertension. The RVSP is 50-55 mmHg. IVC is normal in size and collapses >50% with inspiration. <ELECTRONICALLY SIGNED> By: José Miguel Bates MD, FACC 02/09/21 1153 115 1153 José Miguel Bates MD, FACC /INF
[2021-02-10] VITALS (8 sets, daily range): BP systolic 106–129; BP diastolic 67–84
[2021-02-10 03:41] LABS: CALCIUM 8.7 mg/dL (8.5-10.1); CREATININE 0.9 mg/dL (0.6-1.3); POTASSIUM 3.4 mmol/L (3.5-5.1)
[2021-02-10] MEDS ORDERED: IMDUR 30 MG TAB30 M1 PO (08:45)
[2021-02-10] MEDS ORDERED: ENTRESTO 24 MG1 EACH PO (08:45)
[2021-02-10] MEDS ORDERED: LASIX 40 MG TAB40 M1 PO (08:45)
[2021-02-10] MEDS ORDERED: SPIRONOLACTONE25 MG PO (08:45)
[2021-02-10] MEDS ORDERED: BAYER CHEWABLE81 MG PO (08:45)
[2021-02-10] MEDS ORDERED: DOXYCYCLINE 10100 MG PO (09:40)
[2021-02-10] MEDS ORDERED: CEFDINIR300 MG PO (09:40)
[2021-02-10] MEDS ORDERED: PREDNISONE 10 M10 M1 PO (09:40)
== END 2021-02-10 11:45 | disposition home or self-care (01) | DRG 280 ==
LOC: M.ERS 09:30 → M.TBA-ER 12:08 → M.ICU 02-08 09:41
PROVIDERS: Emergency Medicine; Family Medicine; Internal Medicine Cardiovascular Disease; Registered Nurse; ADMIT Internal Medicine; ATTEND Internal Medicine
PROC: B211YZZ Fluoroscopy of Multiple Coronary Arteries using Other Contrast (ICD-10-PCS; principal; 2021-02-08)
PROC: 4A023N7 Measurement of Cardiac Sampling and Pressure, Left Heart, Percutaneous Approach (ICD-10-PCS; principal; 2021-02-08)
PROC: B215YZZ Fluoroscopy of Left Heart using Other Contrast (ICD-10-PCS; principal; 2021-02-08)
DX: I21.4 Non-ST elevation (NSTEMI) myocardial infarction (principal); I50.41 Acute combined systolic (congestive) and diastolic (congestive) heart failure; I42.0 Dilated cardiomyopathy; L97.929 Non-pressure chronic ulcer of unspecified part of left lower leg with unspecified severity; J20.9 Acute bronchitis, unspecified; I48.0 Paroxysmal atrial fibrillation; E11.51 Type 2 diabetes mellitus with diabetic peripheral angiopathy without gangrene; E78.5 Hyperlipidemia, unspecified; Z20.822 Contact with and (suspected) exposure to COVID-19; I11.0 Hypertensive heart disease with heart failure; I25.10 Atherosclerotic heart disease of native coronary artery without angina pectoris; J44.9 Chronic obstructive pulmonary disease, unspecified; F17.210 Nicotine dependence, cigarettes, uncomplicated; Z71.6 Tobacco abuse counseling; Z79.4 Long term (current) use of insulin

== ENCOUNTER → 2021-02-22 | Outpatient (CLI) | payer OTHER ==
[~2021-02-22] VITALS: Ht 172.7 cm; Wt 90.7 kg
[~2021-02-22] MED LIST changes: +BAYER CHEWABLE81 MG PO; +CEFDINIR300 MG PO; +COREG6.25 MG PO; +DOXYCYCLINE 10100 MG PO; +EFFIENT10 MG PO; +ENTRESTO 24 MG1 EACH PO; +IMDUR 30 MG TAB30 M1 PO; +LASIX 40 MG TAB40 M1 PO; +PREDNISONE 10 M10 M1 PO; +SPIRONOLACTONE25 MG PO
[2021-02-22 09:48] VITALS: BP 100/69
== END ==
LOC: M.CT 02-10 14:58
PROVIDERS: ATTEND Registered Nurse
DX: I70.213 Atherosclerosis of native arteries of extremities with intermittent claudication, bilateral legs (principal); I70.8 Atherosclerosis of other arteries; I25.10 Atherosclerotic heart disease of native coronary artery without angina pectoris; E11.40 Type 2 diabetes mellitus with diabetic neuropathy, unspecified; F17.200 Nicotine dependence, unspecified, uncomplicated

== ENCOUNTER 2021-03-02 11:01 | Observation (INO) | payer OTHER ==
[~2021-03-02] VITALS: Ht 175.3 cm; Wt 91.6 kg
[2021-03-02] VITALS (12 sets, daily range): BP systolic 112–153; BP diastolic 74–92
[~2021-03-02 11:01] MED LIST changes: -COREG6.25 MG PO; -EFFIENT10 MG PO
--- NOTE | 2021-03-02 13:14 | EKG ---
[place] [address] ELECTROCARDIOGRAM REPORT Name: JOSH ANDRADE Room: [facility]#: [id number] Admission: 03/02/21 Attend Phys: Discharge: Date of : 65 Date of Service: 03/02/21 1105 Report #: [id number] THIS REPORT FOR: //name// [facility] ED Test Date: 2021-03-02 Test Time: 11:05:27 Pat Name: JOSH ANDRADE Department: Room: Gender: Teleprinter Installer: : 1965 Requested By: Lebron Lovelace Order Number: [id number] MD: Bert Maddox Measurements Intervals [place] Rate: 83 P: 75 [place]: 127 QRS: 56 QRSD: 98 T: 55 QT: 365 QTc: 429 Interpretive Statements Sinus rhythm Compared to ECG 02/08/2021 00:34:43 No significant changes Electronically Signed On 03-02-2021 13:14:10 CLAIMS CONFIGURATION ANALYST by Bert Maddox [email or web address] <ELECTRONICALLY SIGNED> By: Bert Maddox MD, [facility] 03/02/21 1314 1105 1105 Bert Maddox MD, FAC /EPI
[2021-03-02 13:25] LABS: ABSOLUTE BASOPHILS 0.1 thou/uL (0.0-0.2); ABSOLUTE EOSINOPHILS 0.2 thou/uL (0.0-0.7); ABSOLUTE LYMPHOCYTES 1.9 thou/uL (0.8-5.3); HEMOGLOBIN 16.7 gm/dL (14.0-18.0); LYMPHOCYTES 17.4 %; MCV 86.6 fL (80.0-100.0); MPV 6.2 fl. (7.2-11.1); RDW-CV 13.9 % (10.5-14.5); WBC 10.8 thou/uL (4.0-11.0)
[2021-03-02 13:26] LABS: ABSOLUTE NEUTROPHILS 7.6 thou/uL (1.6-8.1); BASOPHILS 0.9 %; EOSINOPHILS 1.8 %; HEMATOCRIT 49.3 % (42.0-52.0); MCH 29.3 pg (26.0-34.0); MCHC 33.9 g/dL (28.0-37.0); MONOCYTES 9.4 %; NUCLEATED RBCS 0 /100WBC; PLATELET COUNT* 331 thou/uL (150-400); POLYS 70.5 %
[2021-03-02 13:30] LABS: CALCIUM 9.3 mg/dL (8.5-10.1); CREATININE 0.9 mg/dL (0.6-1.3); POTASSIUM 4.4 mmol/L (3.5-5.1)
[2021-03-02 13:34] LABS: ALBUMIN 3.3 g/dL (3.4-5.0); TOTAL BILIRUBIN 0.4 mg/dL (<0.1-1.0); TOTAL PROTEIN 7.9 g/dL (6.4-8.2)
[2021-03-02 18:48] LABS: CK-MB MASS 1.2 ng/mL (<0.5-3.6)
[2021-03-03] VITALS: BP 120/74
[2021-03-03 06:29] VITALS: BP 150/91
[2021-03-03 08:30] LABS: HEMATOCRIT 45.9 % (42.0-52.0); HEMOGLOBIN 15.7 gm/dL (14.0-18.0); MCH 29.4 pg (26.0-34.0); MCHC 34.2 g/dL (28.0-37.0); MPV 6.3 fl. (7.2-11.1); RBC 5.33 mil/uL (4.50-6.00); RDW-CV 13.7 % (10.5-14.5); WBC 9.4 thou/uL (4.0-11.0)
[2021-03-03 09:04] LABS: ALBUMIN 2.9 g/dL (3.4-5.0); CALCIUM 8.8 mg/dL (8.5-10.1); CREATININE 0.6 mg/dL (0.6-1.3); POTASSIUM 3.8 mmol/L (3.5-5.1); TOTAL BILIRUBIN 0.4 mg/dL (<0.1-1.0); TOTAL PROTEIN 7.1 g/dL (6.4-8.2)
--- NOTE | 2021-03-03 09:04 | H ---
[place] [address] HISTORY AND PHYSICAL Name: CHONG ANDRADE Room: [address] Maurizio#: [id number] Admission: 03/02/21 Attend Phys: José Miguel Bates MD Discharge: Date of : 65 Report #: [id number] THIS REPORT FOR: cc: Chong Silva MD, Gregory MD Liston, Michael J. MD FACC ~ cc: Chong Silva MD ADMIT DATE: 03/02/2021 CARDIOLOGY ADMISSION HISTORY AND PHYSICAL INDICATION: Unstable angina. HISTORY OF PRESENT ILLNESS: The patient is a very pleasant 55-year-old gentleman who was seen in the Emergency Room with continued intermittent chest discomfort described as a midsternal chest pain with radiation to both shoulders. He had relief with sublingual nitroglycerin. He has received an aspirin today. Initial cardiac enzymes are unremarkable. A 12-lead EKG shows sinus rhythm. There is no acute ST elevation. Recent cardiac catheterization showed moderate disease in the distal right coronary artery as well as a large ramus branch. At that time, the patient was treated medically for non-ST elevation myocardial infarction. PAST MEDICAL HISTORY: 1. Type 2 diabetes mellitus. 2. Dilated cardiomyopathy. 3. Tobacco abuse. 4. Peripheral arterial disease. 5. Hyperlipidemia. 6. Atrial fibrillation. 7. Coronary artery disease. 8. Hernia repair. 9. Tonsillectomy. ALLERGIES: None documented. HOME MEDICATIONS: Albuterol 2 puffs q. 6 hours p.r.n., aspirin 81 mg daily, atorvastatin 80 mg at bedtime, Wellbutrin SR 150 mg b.i.d., Omnicef 300 mg b.i.d., clobetasol propionate topical cream daily, doxycycline 100 mg b.i.d., duloxetine 30 mg daily, Zetia 10 mg daily, furosemide 40 mg p.o. daily, regular insulin subQ at bedtime on sliding scale, Imdur 30 mg daily, NPH insulin sliding scale, omeprazole 40 mg daily, prednisone taper, Xarelto 20 mg at dinnertime, Entresto 24/26 mg b.i.d., Zoloft 50 mg daily, Viagra 50 mg p.r.n., sotalol 80 mg b.i.d., spironolactone [place] [address] HISTORY AND PHYSICAL Name: CHONG ANDRADE Room: [address]#: [id number] Admission: 03/02/21 Attend Phys: José Miguel Bates MD Discharge: Date of : 65 Report #: [id number] FAMILY HISTORY: Noncontributory. SOCIAL HISTORY: The patient is . He smokes a pack of cigarettes daily. Drinks alcohol occasionally. REVIEW OF SYSTEMS: A 14-point review of systems positive for chest discomfort as outlined above. He has some dyspnea on exertion, but no orthopnea. He denies bleeding problems. He has joint pain. Otherwise, 14-point review of systems was unremarkable. PHYSICAL EXAMINATION: VITAL SIGNS: Blood pressure 112/82, pulse 81 and regular. GENERAL: This is a pleasant gentleman who is in no distress. HEENT: The patient is wearing glasses. Extraocular muscles intact. Mucous membranes moist. NECK: Shows no jugular venous distention. There are no carotid bruits. CHEST: Reveals clear lung humphrey without wheezes or rales. CARDIAC: Reveals regular rhythm. Normal S1, S2. I do not appreciate gallop or murmur. ABDOMEN: Reveals normal bowel sounds. The abdomen is soft, nontender. EXTREMITIES: Shows no edema. Peripheral pulses 2+ and palpable. SKIN: Dry. LABORATORY DATA: A 12-lead EKG shows a sinus rhythm without acute ST elevation. Labs are reviewed. IMPRESSION AND RECOMMENDATIONS: 1. Progressive/unstable angina. The patient will be brought to the cardiac catheterization lab for imaging and possible intervention as outlined above. 2. Hypertension. Blood pressure adequately controlled on home regimen presently. 3. Hyperlipidemia. Continue atorvastatin at current dose. Recommend goal LDL 70 or less. 4. Type 2 diabetes mellitus per primary physician. 5. Paroxysmal atrial fibrillation. Maintaining sinus rhythm on sotalol. He is chronically anticoagulated and having no bleeding problems. <ELECTRONICALLY SIGNED> By: José Miguel Bates MD, FACC 03/03/21 0904 1411 1436[facility] Center[facility] Bates MD, FACC /nt
[2021-03-03 09:17] LABS: CK-MB MASS 2.2 ng/mL (<0.5-3.6)
[2021-03-03 09:45] VITALS: BP 129/82
[2021-03-03] MEDS ORDERED: COREG6.25 MG PO (10:27)
[2021-03-03] MEDS ORDERED: EFFIENT10 MG PO (10:27)
[2021-03-03 10:33] VITALS: BP 129/82
[2021-03-03 10:53] VITALS: BP 129/82
[2021-03-03 11:20] VITALS: BP 129/82
--- NOTE | 2021-03-03 15:35 | CARD ---
[address] [address] CARDIAC CATH REPORT Name: CHONG ANDRADE Room: [address] [place]#: [id number] Admission: 03/02/21 Attend Phys: José Miguel Bates MD Discharge: 03/03/21 Date of : 65 Report #: [id number] THIS REPORT FOR: cc: Chong Silva MD, Gregory MD Holkins, John M. MD [facility] ~ APPROVED REPORT Study performed: 03/02/2021 15:25:11 Patient Details Patient Status: ED Room #: The patient is a 55 year-old male Event Personnel Jazmine Gibbs RTR Scrub, Robin Faustin RTR Monitor, Nisha Rogel RN RN, José Miguel Bates Nursing Teacher, Bert Maddox Lease Administration Analyst Procedures Performed Left Heart Cath w/or w/o Coronaries [id number] [facility] Place w/wo Plasty Single RCA 044230 IS[facility] Place w/wo Plasty Addl BR RAMUS C9601 DESADDL Hemostasis w/ Mynx Indication Unstable angina Risk Factors Hypercholesterolemia Previous Procedures/Diagnoses Previous PCI, Previous [place] Admission/Lab Medications/Medications given during procedure Fentanyl IV 50 mcg, Midazolam (Versed) IV 2 mg, Lidocaine Subcut 20 ml, Angiomax IV 13.5 ml, Nitroglycerin IC 150 mcg, Angiomax IV 32.07 ml per hr, Angiomax IV 4 ml, Effient PO 60 mg Procedure Narrative The patient was brought urgently to the Cardiac Catheterization Laboratory and was prepped and draped in a sterile manner. The right femoral was infiltrated with 2% Lidocaine subcutaneous anesthesia. IV conscious sedation was used throughout procedure with appropriate monitoring and was performed in the presence [place] [address] CARDIAC CATH REPORT Name: CHONG ANDRADE Room: [address]#: [id number] Admission: 03/02/21 Attend Phys: José Miguel Bates MD Discharge: 03/03/21 Date of : 65 Report #: [id number] who was an independent trained observer other than the physician performing the procedure. A [place] 6 FR sheath was inserted into the right femoral artery. Coronary angiography was performed using coronary diagnostic catheters. The right coronary system was accessed and visualized with a Diagnostic JR4 6Fr catheter. The left coronary system was accessed and visualized with a Diagnostic JL4 6Fr catheter. The left ventricle was accessed and visualized with a Diagnostic JR4 6Fr catheter. Left ventricular/Aortic Valve gradient assessed via catheter pullback. Pre-demployment femoral angiogram was performed . Closure device was deployed with a 6 Fr Mynx. The patient tolerated the procedure well and there were no complications associated with the procedure. A hematoma occurred. The right femoral hematoma was very small. Intraoperative Conscious Sedation Sedation start time: 1550 Case end Time: 1634 Fentanyl 50 mcg Versed 2 mg Fluoro Time: 11.0 minutes Dose: DAP 666943 cGycm2 2019.58 mGy Contrast Type and Amount: Omnipaque 290 mL Coronary Angiography The patient's coronary anatomy is right dominant. Diagnostic Cath Left Main 0% narrowing LAD There is 30% proximal and mid LAD narrowing Circumflex 0% narrowing Right Coronary 90% distal stenosis before the posterior descending branch with 50% mid posterior descending branch narrowing Ramus 80% proximal stenosis Left Ventriculography Left Ventriculography was not performed. Hemodynamics The aortic pressure is 148/81 mmHg with a mean of 82 mmHg. The left ventricular pressure is 136/2 mmHg with a mean of mmHg. The left ventricular end diastolic pressure is 8 mmHg. PCI Technique Lesion Anticoagulation was achieved with Angiomax. 13.5 mL Percutaneous coronary intervention was performed on [place] [address] CARDIAC CATH REPORT Name: CHONG ANDRADE Room: [address]#: [id number] Admission: 03/02/21 Attend Phys: José Miguel Bates MD Discharge: 03/03/21 Date of : 65 Report #: [id number] artery. The lesion stenosis prior to intervention was 90% with ERICK 3 flow. A 6F JR 4.0 Guide Catheter was used to engage the Right ostium. A BMW 190cm Interventional Guidewire was used to cross the lesion. BALLOON DILATION A Balloon catheter Trek RX 2.25 X 8 was inserted and inflated up to 8.00atm for 10seconds. Additional Inflation: 12.00atm for 10seconds. STENT DEPLOYMENT A drug-eluting stent Resolute 2.25X8 was inserted and inflated up to 12.00atm for 12seconds. Additional Inflation: 15.00atm for 11seconds. Additional Inflation: 17.00atm for 9seconds. Final angiography reveals 0 % stenosis with ERICK 3 flow. PCI Technique Lesion 2 Percutaneous Coronary Intervention was performed on the ramus intermedius segment. The lesion stenosis prior to intervention was 80% with ERICK 3 flow. A 6F XB LAD 3.5 Guide Catheter was used to engage the Left ostium. A BMW 190cm Interventional Guidewire was used to cross the lesion. Balloon Dilation A Balloon catheter Mini Trek RX 2.0 X 8 was inserted and inflated up to 8.00atm for 11seconds. Stent Deployment A drug-eluting stent Renny RX Stent 2.0X8mm was inserted and inflated up to 10.00atm for 15seconds. Additional Inflation: 10.00atm for 10seconds. Final angiography reveals 0 % stenosis with ERICK 3 flow. Conclusion 1. Significant coronary artery disease characterized by the following: A 30% proximal and mid LAD narrowing B 80% stenosis of the proximal portion of the [place] [address] CARDIAC CATH REPORT Name: CHONG ANDRADE Room: [address] Meir Steven#: [id number] Admission: 03/02/21 Attend Phys: José Miguel Bates MD Discharge: 03/03/21 Date of : 65 Report #: [id number] C dominant right coronary artery with 90% distal stenosis and 50% posterior descending branch narrowing 2. Normal left-sided hemodynamic study 3. Successful PCI with deployment of a drug-eluting stent at the site of 90% distal right coronary stenosis with 0% residual narrowing and ERICK-3 flow the distal vessel 4. Successful PCI with deployment of a drug-eluting stent at site of 80% proximal ramus intermedius stenosis with 0% residual narrowing and ERICK-3 flow to the distal vessel Recommendations Cardiac Risk Reduction Program Aggressive Medical Therapy Medications Administered Aspirin (any) Prasugrel Diagnostic Cath Approved by: José Miguel Bates MD Date/Time: 03/03/2021 15:33:03 <ELECTRONICALLY SIGNED> By: Bert Maddox MD, FACC 03/03/21 1535 1535 1535Bert Maddox MD, FAC /INF
--- NOTE | 2021-03-04 12:27 | D ---
[address] [address] DISCHARGE SUMMARY Name: CHONG ANDRADE Room: [address] Meir Steven#: [id number] Admission: 03/02/21 Attend Phys: José Miguel Bates MD Discharge: 03/03/21 Date of : 65 Report #: [id number] THIS REPORT FOR: cc: Chong Silva MD, Gregory MD Holkins,Bert Castañeda MD [facility] ~ DATE OF DISCHARGE: 03/03/2021 FINAL DISCHARGE DIAGNOSES: 1. Unstable angina. 2. Coronary artery disease. 3. Status post recent myocardial infarction. 4. Hypertension. 5. Diabetes mellitus. 6. Paroxysmal atrial fibrillation. PROCEDURES: On 03/02/2021 -- left heart catheterization, selective coronary arteriography, and percutaneous coronary intervention with deployment of drug-eluting stents in the distal right coronary artery and ramus intermedius. HOSPITAL COURSE: The patient is a very pleasant 55-year-old male who presented recently with acute myocardial infarction. It was a non-STEMI and he was left with moderate impairment in global LV function. Since discharge, he has continued to experience episodes of chest discomfort compatible with angina, both with activity and cold exposure. Episodes have become more frequent and more severe. In that context, he was admitted for repeat cardiac catheterization and consideration of PCI. Risk factors for coronary artery disease include diabetes, hypertension, and hyperlipidemia. He underwent cardiac catheterization on 03/02/2021 which revealed 90% distal right coronary stenosis with 80% proximal ramus intermedius stenosis. There was 30% LAD narrowing. We performed PCI, deploying one 2.25 x 8 mm Renny drug-eluting stent in the distal right coronary artery with 0% residual narrowing and one 2.0 x 8 mm Renny drug-eluting stent in the ramus intermedius with 0% residual narrowing and ERICK 3 flow to both distal circulations. He did well post-procedurally with preserved normal renal function parameters and a normal hemoglobin and hematocrit. He ambulated in the hallways without difficulty with good hemostasis at the right femoral site of catheterization. DISCHARGE MEDICATIONS: He was discharged to home on atorvastatin 80 mg daily, [place] [address] DISCHARGE SUMMARY Name: CHONG ANDRADE Room: [address] Maurizio#: [id number] Admission: 03/02/21 Attend Phys: José Miguel Bates MD Discharge: 03/03/21 Date of : 65 Report #: [id number] bupropion 150 mg b.i.d., clobetasol 50 mg topically daily, duloxetine 30 mg daily, Zetia 10 mg daily, fluticasone inhaled b.i.d., omeprazole 40 mg daily, sertraline 50 mg daily, Viagra or sildenafil 50 mg on a p.r.n. basis, not to be used in juxtaposition to nitrate therapy, inhaled albuterol 2 puffs every 6 hours as needed for wheezing, regular and NPH insulin in varying doses continging on blood sugars, which were followed carefully at home, Imdur 30 mg daily, Entresto 24/26 mg b.i.d., aspirin 81 mg daily, prasugrel 10 mg daily and carvedilol 6.25 mg b.i.d. Xarelto and sotalol were discontinued. The patient is scheduled to return to see our nurse practitioner, Skye Schroeder in 2 weeks and we will arrange a followup echocardiogram subsequent to ascertain a magnitude of LV dysfunction after the infarct and procedure as described above. These impressions were discussed in detail with the patient, and he is discharged home in stable condition on 03/03/2021. <ELECTRONICALLY SIGNED> By: Bert Maddox MD, FACC 03/04/21 1227 0939 [id number] Maddox MD, FACC /nt
--- NOTE | 2021-03-04 15:10 | EKG ---
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1965 Requested By: José Miguel Bates Order Number: [id number] Reading MD: José Miguel Bates Measurements Intervals [place] Rate: 83 P: 80 AR: 118 QRS: 71 QRSD: 96 T: 76 QT: 363 QTc: 427 Interpretive Statements Sinus rhythm Atrial premature complex Borderline short AR interval Probable left atrial enlargement Borderline T wave abnormalities Baseline wander in lead(s) V6 Compared to ECG 03/02/2021 11:05:27 Atrial premature complex(es) now present T-wave abnormality now present Electronically Signed On 03-04-2021 15:10:21 ORACLE R12 DEVELOPER by José Miguel Bates [email or web address] <ELECTRONICALLY SIGNED> By: José Miguel Bates MD, [facility] 03/04/21 1510 1724 1724 José Miguel Bates MD, [facility] /EPI
--- NOTE | 2021-03-04 15:17 | EKG ---
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1965 Requested By: José Miguel Bates Order Number: [id number] Reading MD: José Miguel Bates Measurements Intervals [place] Rate: 87 P: 78 OR: 123 QRS: 66 QRSD: 93 T: 135 QT: 452 QTc: 544 Interpretive Statements Sinus rhythm Probable left atrial enlargement Nonspecific T abnrm, anterolateral leads Prolonged QT interval Compared to ECG 03/02/2021 17:24:55 Prolonged QT interval now present Atrial premature complex(es) no longer present T-wave abnormality no longer present Electronically Signed On 03-04-2021 15:16:53 PRESSROOM SUPERVISOR by José Miguel Bates [email or web address] <ELECTRONICALLY SIGNED> By: José Miguel Bates MD, FACC 03/04/21 1516 1047 1047 José Miguel Bates MD, FAC /EPI
== END 2021-03-03 12:16 | disposition home or self-care (01) ==
LOC: M.ERS 11:01 → M.TBA-ER 13:51 → M.2W 17:40
PROVIDERS: Physician Assistant; ADMIT Internal Medicine Cardiovascular Disease; ATTEND Internal Medicine Cardiovascular Disease
DX: I25.110 Atherosclerotic heart disease of native coronary artery with unstable angina pectoris (principal); Z20.822 Contact with and (suspected) exposure to COVID-19; E78.5 Hyperlipidemia, unspecified; E11.51 Type 2 diabetes mellitus with diabetic peripheral angiopathy without gangrene; I42.0 Dilated cardiomyopathy; I10 Essential (primary) hypertension; I48.0 Paroxysmal atrial fibrillation; E78.00 Pure hypercholesterolemia, unspecified; Z98.890 Other specified postprocedural states